=== PATIENT | female | born 1985 | race Caucasian/White ===

== ENCOUNTER 2016-07-30 00:34 | Day surgery (SDC) | payer OTHER ==
[~2016-07-30 00:34] MED LIST: ADV250INH IH; ALBU0.63 INHALATION; ALBU8.5H2 INHALATION; CHOL500050 PO; DICY10CA13 PO; LISI-567 PO; MELA10TA PO; METF500T4 PO; MIRENA IUD; OXYC1TAB24 PO; PANT40TA3 PO; SPIR100T3 PO
[2016-07-30] MEDS ORDERED: Thyrotropin 0.9 mg/mL Inj IM ONE (15:00)
[2016-07-30 15:25] VITALS: BP 105/69; PULSE 96; RESP 14; O2SAT 98
[2016-07-30] MEDS ORDERED: Potassium PO (15:35)
[2016-07-30] MEDS ORDERED: FLUT1DIS5 IH (15:35)
--- NOTE | 2016-07-30 15:36 | NUR ---
Injection VSS. Med rec done. Thyrogen care note reviewed. Injection given left hip. Left ambulatory in no distress.
== END 2016-07-30 23:59 | disposition home or self-care (01) ==
LOC: SOUO 00:34
PROVIDERS: ATTEND Internal Medicine
DX: C73 Malignant neoplasm of thyroid gland (principal)
CPT/HCPCS: 96372; J3240

== ENCOUNTER 2016-07-31 00:52 | Day surgery (SDC) | payer OTHER ==
[~2016-07-31 00:52] MED LIST changes: +FLUT1DIS5 IH; +Potassium PO
[2016-07-31] MEDS ORDERED: Thyrotropin 0.9 mg/mL Inj IM ONE (15:00)
[2016-07-31 15:23] VITALS: BP 110/67; PULSE 92; RESP 20; O2SAT 99
--- NOTE | 2016-07-31 15:57 | NUR ---
Injection VSS. Allergies and meds confirmed. Injection given right buttock. States had no problems from yesterday's injection and still kasia drug info and follow up appointments. Left ambulatory in no distress at 1556.
== END 2016-07-31 23:59 | disposition home or self-care (01) ==
LOC: SOUO 00:52
PROVIDERS: ATTEND Internal Medicine
DX: C73 Malignant neoplasm of thyroid gland (principal)
CPT/HCPCS: 96372; J3240

== ENCOUNTER → 2016-08-06 | Day surgery (SDC) | payer OTHER ==
[~2016-08-06] MED LIST changes: -ADV250INH IH; -DICY10CA13 PO; -OXYC1TAB24 PO; +Thyrotropin 0.9 mg/mL Inj IM SCH
--- NOTE | 2016-08-06 15:00 | NUR ---
PT HERE FOR THYROGEN INJECTION. VITALS TAKEN, WAITING FOR MEDICATION
[2016-08-06 15:30] VITALS: BP 129/94; PULSE 90; RESP 16; O2SAT 98
--- NOTE | 2016-08-06 15:45 | NUR ---
INJECTION GIVEN, RIGHT GLUTEAL. TO RETURN TOMORROW FOR DAY 2
== END ==
LOC: SOUO 00:23
PROVIDERS: ATTEND Internal Medicine
DX: C73 Malignant neoplasm of thyroid gland (principal)
CPT/HCPCS: 96372; J3240

== ENCOUNTER 2016-08-07 02:01 | Day surgery (SDC) | payer OTHER ==
[~2016-08-07 02:01] MED LIST changes: -Thyrotropin 0.9 mg/mL Inj IM SCH
[2016-08-07] MEDS ORDERED: Thyrotropin 0.9 mg/mL Inj IM ONE (10:00)
[2016-08-07 15:40] VITALS: BP 139/78; PULSE 89; RESP 20; O2SAT 97
== END 2016-08-07 23:59 | disposition home or self-care (01) ==
LOC: SOUO 02:01
PROVIDERS: ATTEND Internal Medicine
DX: C73 Malignant neoplasm of thyroid gland (principal)
CPT/HCPCS: 96372; J3240

== ENCOUNTER → 2016-12-25 | Day surgery (SDC) | payer OTHER ==
[~2016-12-25] MED LIST changes: +Lactated Ringer's 1,000 ML IV ONE; +Lidocaine Topical 2% 30 mL Jelly ONE
== END | disposition home or self-care (01) ==
LOC: END 00:34
PROVIDERS: ATTEND Internal Medicine Gastroenterology
DX: K21.9 Gastro-esophageal reflux disease without esophagitis (principal); R11.0 Nausea

== ENCOUNTER → 2017-01-17 | Day surgery (SDC) | payer OTHER ==
--- NOTE | 2017-01-10 09:41 | PCM.ANEPRE ---
Anesthesia Pre-Op Review Reason for Review: elevated bmi, multi co morbids Anesthesia Recommendations: Proceed with Procedure Additional Comments 31 yo for left ESWL; bmi 47. medullary sponge kidney disease. asthma. DM A1C 5.7 on 03/11 BI doesn't tolerate CPAP Ok to proceed with usual DOS evaluation for asthma, BG and perioperative mgmt with insulin, recommend consent include increased respiratory risks with untreated BI, add non opioid analgesics, BI protocol postop. Chart Reviewed by: Min Chen MD, MD Jan 10, 2017 09:41
[~2017-01-17] VITALS: Ht 172.7 cm; Wt 139.4 kg
[2017-01-17] VITALS (8 sets, daily range): BP systolic 99–137; BP diastolic 57–72; PULSE 12–96; RESP 13–21; O2SAT 94–97
[~2017-01-17] MED LIST changes: +Albuterol-Ipratropium 3 mL Inhalation Solution NEB PRN; +Atropine 0.4 mg/mL Inj IVPUSH PRN; +CETI10CA PO; +Dexamethasone 4 mg/mL Inj IVPUSH PRN; +Dexamethasone 4 mg/mL Inj ONE; +EPHEDrine Sulfate 50 mg/mL Inj IVPUSH PRN; +FERR325T40 PO; +FLUT16SP NS; +GABA-500 PO; +HYDROmorphone 1 mg/mL Inj IVPUSH PRN; +LEVO125T6 PO; -LISI-567 PO; +LISI10TA PO; +Labetalol 5 mg/mL 20 mL Inj IV PRN; -Lactated Ringer's 1,000 ML IV ONE; +Lactated Ringer's 1,000 ML IV SCH; +Lactated Ringer's 500 ML IV PRN; -Lidocaine Topical 2% 30 mL Jelly ONE; -MELA10TA PO; +MELA1TAB21 PO; +METF1000 PO; -METF500T4 PO; -MIRENA IUD; +MetoCLOpramide 5 mg/mL 2 mL Inj IVPUSH PRN; +OXYB5TAB PO; +Ondansetron 2 mg/mL 2 mL Inj IVPUSH PRN; +Ondansetron 2 mg/mL 2 mL Inj ONE; +POTA5TAB2 PO; +Phenylephrine 10,000 mCg/mL Inj IVPUSH PRN; -Potassium PO; +Propofol 10,000 mCg/mL 20 mL Inj ONE; +fentaNYL-PF 50 mCg/mL 2 mL Inj IVPUSH PRN; +fentaNYL-PF 50 mCg/mL 2 mL Inj ONE; +levoFLOXacin Inj 500 MG in IV Premix 1 EACH IV ONE; +mirena INTRAUTERI; +oxyCODONE-Acetamin 5-325 mg Tablet PO ONE; +oxyCODONE-Acetamin 5-325 mg Tablet PO PRN
--- NOTE | 2017-01-17 08:42 | PCM.HPANE ---
Patient Data Surgeon Admitting Provider: Attending Provider:Dhiraj Alejandro MD Primary Care Physician:Debi Rivera PA-C Other Provider:Beryl Joseph Anesthesia Reason for Visit Left Kidney Stone Ht/WT & BMI Height (Feet): 5 Height (Inches): 8 Weight (Kilograms): 139.4 Body Mass Index 47.00 Allergies Coded Allergies: honey (Verified Allergy, Severe, HIVES,ITCHING, 01/09/17) codeine (Verified Adverse Reaction, Severe, itching, 01/09/17) hydrocodone bitartrate (Verified Adverse Reaction, Severe, itching, ) Past Anesthesia History Anesthesia History: Denies:: Anesthesia Reactions, Fam Anesthesia Reaction, Malignant Hyperthermia Diabetes History Hx Diabetes?: No (last found hgb A1c- 5.7 (02/2016)takes metformin for PCOS) Glycemic Control: Oral Medication MRSA MRSA: No Medications Hypertension Medication: Yes Home Meds Incl Beta [place]: No Reported Medications Cholecalciferol (Vitamin D3) (Vitamin D3)50,000 Unit Wdcoadp27,000 Unit PO 2xweekly 01/09/17 Spironolactone 100 Mg Orijot348 Mg PO DAILY #30 TABLET Ref 0 01/09/[address] 40 Mg Tablet.dr40 Mg PO BID Ref 0 01/09/17 [mirena] 20mcg/24hr No Conflict Check20 Mcg INTRAUTERI DAILY 01/09/17 Metformin (Glucophage)1,000 Mg Tablet1,000 Mg PO BID Ref 0 01/09/17 Lisinopril 10 Mg Dfvsrx63 Mg PO DAILY 30 Days Ref 0 01/09/17 Levothyroxine 125 Mcg Xobntm832 Mcg PO DAILY For Thyroid Replacement Ref 0 01/09/17 Ferrous Sulfate (Iron)325 Mg Fmmrtf533 Mg PO DAILY 01/09/17 Gabapentin 100 Mg Jggvkkf816-487 Mg PO DAILY 30 Days Ref 0 01/09/17 Fluticasone Propionate (Fluticasone Propionate Nasal)16 Gm [place].susp2 [place] NS BID #16 GM Ref 0 01/09/17 Cetirizine HCl (Zyrtec)10 Mg Kifoqtf14 Mg PO HS #30 CAPSULE Ref 0 01/09/17 Albuterol Neb Soln 0.63 Mg/3 Ml Vial.neb0.63 Mg INHALATION Q4H PRN For Shortness of Breath Ref 0 01/09/17 Albuterol HFA (Proair HFA)8.5 Gm Hfa.aer.ad2 Puffs INHALATION Q4H PRN For Shortness of Breath #1 INHALER 01/09/17 Fluticasone/Salmeterol (Advair 500-50 Diskus)1 Each Disk.w.dev1 Puff IH BID #1 DISK Ref 0 01/09/17 Oxybutynin Chloride ER 5 Mg Tab.er.245 Mg PO DAILY Ref 0 01/09/17 Potassium Citrate ER 5 Meq Tablet5 Meq PO BID Ref 0 TAKE WITH FOOD 01/09/17 Discontinued Reported Medications Melatonin/Pyridoxine HCl (B6) (Melatonin 10 mg Tablet)1 Each Tab.mphase1 Each PO DAILY 01/09/17 History History of ENT Problems?: No HEENT History: Positive for:: Dysphagia (75% food gets stuck-hx of esoph dilations) TMJ (wears nightguard) Denies:: Cataracts Glaucoma Hearing Problem Sinus Problem Denture Type: None Teeth Condition: Within Normal Limits Hx of Heart Problems?: Yes Cardiovascular History: Positive for:: Hypertension Denies:: Cardiac Surgery Chest Pain Congestive Heart Failure Edema Heart Murmur Irregular Heartbeat Pacemaker Thrombophlebitis Hx of Respiratory Problem?: Yes Respiratory History: Positive for:: Asthma (moderate persistent) Dyspnea Use of Inhalers / NEBS Denies:: COPD Chest Surgery Emphysema Hemoptysis Oxygen Administration Pneumonia Tuberculosis Use of C-PAP Machine (BI+, does not tolerate CPAP) Hx Neurologic Problems?: Yes Neurological History: Positive for:: Headaches (4-5 x weekly) Denies:: Alzheimer's Disease CVA Dementia Dizziness Multiple Sclerosis Parkinson's Disease Seizures Hx of GI Problems?: Yes Hx of Problems?: Yes Genitourinary History: Positive for:: Kidney Stones (left ESWL current admission problem, prior stent 2016) Denies:: HX of Hemodialysis Urinary Tract Infection (hx of, not current) HX of Peritoneal Dialysis: No Female Hx: Denies:: Currently (mirena IUD- ) Endometriosis Pelvic Inflammatory (polycystic ovaries) Problems with Breasts? Skin History: Denies:: History Skin Disorders? Pressure Ulcers Hx Musculoskeletal Problems?: Yes Musculoskeletal History: Positive for:: Fibromyalgia Denies:: Back Injury Degenerative Joint Joint Replacement Musculoskeletal Trauma Myasthenia Gravis Osteoarthritis Systemic Lupus Hx of Psycho/Social Problems?: No Psycho Social History: Positive for:: Hx Depression (PTSD) Denies:: Anxiety Bipolar Disorder Suicide Attempt Hx Surgeries?: Yes (thyroidectomy, wide exc rt labia) Hx Any Other Health Problems?: Yes Other History: Positive for:: Cancer (sq cell vulva, papillary thyroid) Hospitalization Thyroid Disease (thyroidectomy with ablation) Denies:: Endocrine Disease History Blood Transfusions: Positive for:: Accept Blood Products? Denies:: Blood Transfuse Reaction Blood Transfusions Hx Diabetes: No (last found hgb A1c- 5.7 (02/2016)takes metformin for PCOS) Hx Alcohol Use: NoAlcoholic Drinks Per Day: maybe once yearlyHx Substance Use : No Smoking Status: Never Smoker Have You Smoked inLast 12 mo: No Stop/Bang P-Blood Pressure: treated: Yes B- Body Mass Index > 35 kg/m2: Yes A- Age over 50: No N- Neck Large Circumference: Yes G- Gender Male: No BI Risk Assessment: High Risk, =/>3 Yes BI Category 4 OutPt Procedure: Yes Risk Assessment Category Category 1A: Patient has history of documented sleep apnea, and HAS NOT received any narcotic, sedative or anesthesia administration during this stay. Category 1B: Patient has history of documented sleep apnea, and HAS received any narcotic , sedative or anesthesia administration during this stay Category 2: Patient has SUSPECTED Obstructive Sleep Apnea, and HAS received any narcotic , sedative or anesthesia administration during this stay. Category 3: Patient has SUSPECTED Obstructive Sleep Apnea and HAS NOT received narcotic, sedative or anesthesia administration during this stay. Category 4: Outpatient in Procedural Areas with known sleep apnea or who screen positive for High Risk via the STOP/BANG questionnaire. Exam Exam Vital Signs Vital Signs Date Time Temp Pulse Resp B/P Pulse Ox O2 Delivery O2 Flow Rate FiO2 01/17/17 08:33 36.3 87 20 137/71 97 Room Air General Appearance: Alert, Oriented X3, Cooperative, No Acute Distress HEENT/AIRWAY: MP 2 Lungs: Normal Air Movement Heart: Exam Unremarkable Plan Impression Patient chart reviewed, patient interviewed and anesthestic plan with risks, benefits, and alternatives discussed, and informed consent obtained. ASA Physical Status: ASA3 Severe Disease (morbid obesity) Anesthetic Plan: GA Bene/Risks/Altern/Consents: Yes HP Complete Prior to Induction: Yes Rehan Duarte MD Jan 17, 2017 08:42
[2017-01-17] MEDS: Lactated Ringer's 1,000 ML IV SCH ×2 (08:55→09:24)
--- NOTE | 2017-01-17 09:54 | DRSVH ---
PROCEDURE: X-RAY KUB ([id number]) INDICATIONS: LEFT KIDNEY STONE TECHNIQUE: One view of the abdomen acquired. COMPARISON: [facility], CR, XR KUB, 12/05/2016, 9:53. [facility], CR, KUB, 03/04/2014, 11:28. FINDINGS: Surgical changes and devices: None. Bowel: Bowel gas pattern is normal. Soft tissues: No new suspicious abdominal calcifications. Visualized solid organ contours appear no rmal in size. Bones: No suspicious bony lesions. IMPRESSION: No change in the previously identified small left mid renal collecting system region calc ulus measuring 6 mm. No right-sided calculus is found. No ureteral stone is suspected. Dictated by: Rehan Lawton M.D. on 01/17/2017 at 9:51 Approved by: Rehan Lawton M.D. on 01/17/2017 at 9:52
--- NOTE | 2017-01-17 10:32 | PCM.SURGPO ---
Immediate Operative Note Date of Surgery: Jan 17, 2017 Pre Operative Diagnosis L renal calculus Post Operative Diagnosis L renal calculus Procedure Extracorporeal shock wave lithotripsy of L renal calculus Surgeon and Marketing Secretary Surgeon: Dhiraj Alejandro MD Assistants: None Findings Pre-op KUB showed a 6mm x 4mm L mid pole renal calculus. ESWL of L renal calculus was performed at a rate of 60, up to a maximum energy level of 6, with a total of 2000 shocks administered. Of note, a 2 minute pause was performed after the initial 200 shocks to aid in calculus fragmentation. Post-ESWL fluoroscopy revealed evidence for excellent fragmentation of calculus. Complications There were no periprocedural complications identified. Surgical Specimen Removed: No Specimen sent to Pathology: No Anesthetic Administered: GA Grafts, Implants: None Output, Estimated Blood Loss: 0 Blood Admin during surgery: No Additional information Patient to return to see me in 2-3 weeks for post-op visit, with KUB prior to appt. Dhiraj Alejandro MD Jan 17, 2017 10:32
--- NOTE | 2017-01-17 10:57 | PCM.DISURG ---
Surgical Discharge Instruction Date of Service Jan 17, 2017 Dates of Hospitalization Date of Hospital Admission Jan 17, 2017 Providers Admitting Physician: Dhiraj Alejandro MD Primary Care Physician: Debi Rivera PA-C Attending Physician: Dhiraj Alejandro MD Discharge Diagnosis Discharge Diagnosis L renal calculus Post Operative diagnosis L renal calculus Diet Discharge Diet: No restrictions, Other (Drink at least 10-12 8oz. glasses (3 liters) of fluids per day) Activity Discharge Activity-General: No driving while taking narcotic Dressing and Incisional Care Hygiene: May shower Follow Up Plan Follow-up Provider (F9): Dhiraj Alejandro MD Follow-up appointment: Weeks (2-3 weeks for post-op visit, with KUB prior to appt.) Call your provider for: Fever, Chills, Vomiting, Other (Pain uncontrolled by pain medications) Dhiraj Alejandro MD Jan 17, 2017 10:57
--- NOTE | 2017-01-17 11:44 | PCM.ANEP1 ---
Post Anesthesia PACU Phase 1 Assessment Vital Signs Vital Signs Date Time Temp Pulse Resp B/P Pulse Ox O2 Delivery O2 Flow Rate FiO2 01/17/17 10:48 80 16 107/61 96 Room Air 01/17/17 10:40 36.8 88 16 115/64 96 Room Air 01/17/17 10:35 84 16 117/60 94 Room Air 01/17/17 10:30 86 18 99/60 97 Room Air 01/17/17 10:25 95 17 104/57 96 Room Air 01/17/17 10:20 96 13 100/72 94 Room Air 01/17/17 10:16 36.8 12 21 116/72 94 Room Air 01/17/17 08:33 36.3 87 20 137/71 97 Room Air Anesthetic Administered: GA Level of Alertness: Awake, talking LIZ's with Equal Strength: Yes Pain: No Nausea or Vomiting: No CV Function & Hydration Stable: Yes Airway Device: Oxygen Delivery: Room Air Lungs: Normal Air Movement Dermatome Level: Full Sensation PACU Phase 2 Assessment Complications: No Follow up Care: No Patient Instructions Provided: N/A Rehan Duarte MD Jan 17, 2017 11:44
--- NOTE | 2017-01-18 18:22 | OP ---
[address] [address] OPERATIVE REPORT PATIENT: ERIC BURGER : 1985 MR#: [id number] ADMIT: 01/17/2017 JOB ID: [id number] DATE OF SURGERY: 01/17/2017 PREOPERATIVE DIAGNOSIS(ES): Left renal calculus. POSTOPERATIVE DIAGNOSIS(ES): Left renal calculus. PROCEDURE: Extracorporeal shockwave lithotripsy of left renal calculus. SURGEON: Dhiraj Alejandro MD HOUSING DEVELOPMENT SPECIALIST: None. ANESTHESIA: General. ESTIMATED BLOOD LOSS: 0 mL. SPECIMENS: None. DRAINS: None. COMPLICATIONS: None. CONDITION: Stable. FINDINGS: Preop KUB showed a 6 mm x 4 mm left mid pole renal calculus. ESWL of left renal calculus was performed at a rate of 60, up to a maximum energy level of 6, with a total of 2000 shocks administered. Of note, a 2 minute pause was performed after the initial 200 shocks to aid in calculus fragmentation. Post ESWL fluoroscopy revealed evidence for excellent fragmentation of calculus. INDICATIONS: The patient is a 31-year-old female seen by ROEL Almanza in the office on December 25, 2016 for a left renal calculus. The patient now presents for extracorporeal shockwave lithotripsy of left renal calculus. PROCEDURE: The patient was brought to the operating room and placed supine on the operating room table. The patient was given Levaquin IV antibiotics. Sequential compression device boots were placed. General anesthesia was administered. The patient was left in supine position. Preop KUB showed a 6 mm x 4 mm left mid pole renal calculus. Extracorporeal shockwave lithotripsy of left renal calculus was performed at a rate of 60, up to a maximum energy level of 6, with a total of 2000 shocks administered. Of note, a 2 minute pause was performed after the initial 200 shocks to aid in calculus fragmentation. Post ESWL fluoroscopy revealed evidence for excellent fragmentation of calculus. The patient was awakened from general anesthesia and transferred to the recovery room in stable condition. The patient tolerated the procedure well. The postop plan is for the patient to return to see me in the office in 2-3 weeks for a postoperative visit with a KUB prior to the appointment.
== END | disposition home or self-care (01) ==
LOC: SAS 07:51
PROVIDERS: ATTEND Urology
DX: N20.0 Calculus of kidney (principal); E28.2 Polycystic ovarian syndrome; G47.33 Obstructive sleep apnea (adult) (pediatric); I10 Essential (primary) hypertension; E11.9 Type 2 diabetes mellitus without complications; J45.909 Unspecified asthma, uncomplicated; K21.9 Gastro-esophageal reflux disease without esophagitis; Z79.4 Long term (current) use of insulin; Z79.51 Long term (current) use of inhaled steroids
CPT/HCPCS: 50590; 74000; J1100; J1170; J1885; J2250; J2405; J2704; J3010; J7120